=== PATIENT | female | born 1965 | race Caucasian/White ===

== ENCOUNTER 2022-01-17 08:37 | Outpatient (CLI) | payer OTHER, SELFPAY ==
--- NOTE | 2022-01-17 11:00 | NEURO_ITS ---
Impression: # Complains of numbness of hands. # Right ulnar neuropathy across the elbow. # No Carpal Tunnel Syndrome. # Normal needle/EMG exam. Nerve Conduction Studies Anti Sensory Summary Table Stim Site NR Peak (ms) P-T Amp (?V) Site1 Site2 Delta-P (ms) Dist (cm) Yoav (m/s) Left Median Anti Sensory (2-3nd Digit) Wrist 3.8 33.5 Wrist 2-3nd Digit 3.8 14.0 37 Wrist 3.8 18.8 Wrist 2-3nd Digit 3.8 14.0 37 Right Median Anti Sensory (2-3nd Digit) Wrist 3.0 68.9 Wrist 2-3nd Digit 3.0 14.0 47 Wrist 2.9 81.1 Wrist 2-3nd Digit 3.0 14.0 47 Left Radial Anti Sensory (Base 1st Digit) Wrist 2.5 21.6 Wrist Base 1st Digit 2.5 0.0 Right Radial Anti Sensory (Base 1st Digit) Wrist 2.5 17.1 Wrist Base 1st Digit 2.5 0.0 Left Ulnar Anti Sensory (5th Digit) Wrist 2.7 64.9 Wrist 5th Digit 2.7 14.0 52 Right Ulnar Anti Sensory (5th Digit) Wrist 2.6 58.0 Wrist 5th Digit 2.6 14.0 54 Motor Summary Table Stim Site NR Onset (ms) O-P Amp (mV) Site1 Site2 Delta-0 (ms) Dist (cm) Yoav (m/s) Left Median Motor (Abd Poll Brev) Wrist 3.6 5.0 Elbow Wrist 4.8 27.0 56 Elbow 8.4 3.9 Right Median Motor (Abd Poll Brev) Wrist 3.0 5.7 Elbow Wrist 4.7 26.0 55 Elbow 7.7 5.5 Left Ulnar Motor (Abd Dig Minimi) Wrist 2.8 6.4 A Elbow Wrist 4.9 27.0 55 A Elbow 7.7 5.3 B Elbow Wrist 4.2 25.0 60 B Elbow 7.0 5.1 Right Ulnar Motor (Abd Dig Minimi) Wrist 2.9 7.5 A Elbow Wrist 5.7 28.0 49 A Elbow 8.6 4.8 B Elbow Wrist 3.4 20.0 59 B Elbow 6.3 4.4 F Wave Studies NR F-Lat (ms) L-R F-Lat (ms) Left Median (Mrkrs) (Abd Poll Brev) 26.85 0.83 Right Median (Mrkrs) (Abd Poll Brev) 26.02 0.83 Left Ulnar (Mrkrs) (Abd Dig Min) 27.27 0.39 Right Ulnar (Mrkrs) (Abd Dig Min) 26.88 0.39 EMG Side Muscle Nerve Root Ins Act Fibs Amp Dur Recrt Comment Right 1stDorInt Ulnar C8-T1 Nml Nml Nml Nml Nml Right Ext Indicis Radial (Post Int) C7-8 Nml Nml Nml Nml Nml Right Ext Digitorum Radial (Post Int) C7-8 Nml Nml Nml Nml Nml Right BrachioRad Radial C5-6 Nml Nml Nml Nml Nml Right PronatorTeres Median C6-7 Nml Nml Nml Nml Nml Right Abd Poll Brev Median C8-T1 Nml Nml Nml Nml Nml Left 1stDorInt Ulnar C8-T1 Nml Nml Nml Nml Nml Left Ext Indicis Radial (Post Int) C7-8 Nml Nml Nml Nml Nml Left Ext Digitorum Radial (Post Int) C7-8 Nml Nml Nml Nml Nml Left BrachioRad Radial C5-6 Nml Nml Nml Nml Nml Left PronatorTeres Median C6-7 Nml Nml Nml Nml Nml Left Abd Poll Brev Median C8-T1 Nml Nml Nml Nml Nml Right ABD Dig Min Ulnar C8-T1 Nml Nml Nml Nml Nml Left ABD Dig Min Ulnar C8-T1 Nml Nml Nml Nml Nml MTDD
== END 2022-01-17 08:38 | disposition home or self-care (01) ==
PROVIDERS: PCP Internal Medicine Infectious Disease; Visit Provider Registered Nurse
DX: R20.2 Paresthesia of skin (principal); M54.2 Cervicalgia; G56.21 Lesion of ulnar nerve, right upper limb
CPT/HCPCS: 95886; 95911

== ENCOUNTER 2022-02-12 12:49 | Outpatient (CLI) | payer OTHER, SELFPAY ==
--- NOTE | 2022-02-12 13:07 | ECG_ITS ---
Measurements Intervals [place] Rate: 82 P: 42 KS: 136 QRS: 37 QRSD: 80 T: 62 QT: 381 QTc: 446 Interpretive Statements SINUS RHYTHM NONSPECIFIC T-WAVE ABNORMALITY ABNORMAL ECG NO PREVIOUS ECG AVAILABLE FOR COMPARISON Electronically Signed On 02-12-2022 14:13:38 CDT by Damien Valadez M.D.
== END 2022-02-12 12:50 | disposition home or self-care (01) ==
LOC: ANHCARD 12:52
PROVIDERS: PCP Internal Medicine Infectious Disease; Visit Provider Anesthesiology
DX: Z72.0 Tobacco use (principal); Z01.818 Encounter for other preprocedural examination; R94.31 Abnormal electrocardiogram [ECG] [EKG]
CPT/HCPCS: 93005

== ENCOUNTER 2022-02-13 01:26 | Day surgery (SDC) | payer OTHER, SELFPAY ==
--- NOTE | 2022-02-08 12:51 | P.HP_ITS ---
H&P: HPI History of Present Illness Date/Time: 02/08/22 12:51 Chief Complaint: the patient is a 56-year-old female who presents with left knee pain. This is chronic ongoing in nature. Patient has aching pain medially and anteriorly worse with activities and relieved by rest. She has problems with squatting kneeling going up down stairs reports mechanical symptoms occasional swelling. Despite cortisone therapy and anti-inflammatories symptoms continue. An MRI scan was performed that shows a popliteal fossa cyst and intercondylar cyst in between the femoral condyles mild sprain of the anterior cruciate ligament is noted grade 2 changes with chondromalacia patella. There is a horizontal tear of the posterior horn the medial meniscus not extending to the articular surface there is some edema seen in the medial femoral condyle and tibial plateau de generative changes are noted along the medial compartment there is a grade 1 sprain of the medial collateral ligament and minimal sprain of the quadriceps tendon insertion. at this point the patient is where the above findings she knows she has pre-existing osteoarthritis may negative for leaf of her knee pain from knee arthroscopy however she would like to proceed. Review of Systems Review of Systems: Ten point review of systems otherwise negative Meds Home Medications and Allergies Allergies Allergy/AdvReac Type Severity Reaction Status Date / Time ibuprofen Allergy Mild Verified 03/29/09 11:25 Exam Narrative: on exam the patient is noted be a well-developed well-nourished female no acute distress alert oriented x3. Normal mood and affect. The patient is noted to be 5 ft tall 160 lb. BMI is 31.2. Hearing and vision are intact. Respiratory is good no distress. Pulse regular rhythm. Abdomen benign. Extremities showed the patient's left knee to be painful with manipulation range of motion she has tenderness on the medial joint line with positive Christina exam negative Angi knee joint is otherwise stable strength is 5 5 there is subpatellar crepitation mild effusion swelling hips move well with negative Stinchfield negative Adriana neurovascularly she is intact skin is intact full range of motion is noted in left knee with pain with extremes of motion skin is intact without rashes or lesions. Central nervous system within normal limits. MRI scan is as above. Assessment and Plan Assessment and plan (1) Tear of medial meniscus of left knee: Code(s): S83.242A - Other tear of medial meniscus, current injury, left knee, initial encounter Status: Acute Plan by MRI and exam the patient is noted to have a medial meniscal tear of the left knee with the above associated findings. The patient has discussed risks benefits limitations and alternatives to surgery in great detail with Dr. Robb she is now ready to proceed with left knee arthroscopy partial medial meniscectomy proceed as indicated. The patient is scheduled to undergo surgery 02/13/2022 at [facility] Dr. Robb. The patient voiced understanding agrees with the above plan.
[2022-02-11 16:55] VITALS: BMI 32.3
--- NOTE | 2022-02-11 17:15 | PC.NURSE ---
Report to the Outpatient Waiting Room, entrance under the green pavilion located off [facility], at time 0730 on date 02/13/22. Planned Procedure Time: 0930. Time changes happen often and if your time is changed the preop area will call you the afternoon before. - You and your visitor will be asked to self-screen and do not enter if you have any COVID symptoms. - We encourage only one visitor and NO visitors under age 16 are allowed at this time. Your visitor will receive communication by the phone number that is given day of service. - The patient visitor is requested to social distance or may leave the building when not with patient due to restrictions. - A mask is required within the hospital. Patients may have clear liquids (water, carbonated beverages, clear teas, apple juice) until 3 hours prior to surgery with a maximum of 20 ounces 0630. - No food from midnight until time of surgery - Infants may have breast milk until 4 hours before surgery, formula 6 hours prior to surgery. - Children will be allowed to drink immediately following surgery. If applicable, please bring a bottle or sippy cup to assist with drinking. Juice, water, soda, and popsicles are readily available. For infants on formula, please bring formula the day of surgery. Pacifiers are allowed. Take the following medications with a SIP of water the morning of surgery: Valiuam, Cymbalta, Spiriva, Albuterol Inhaler, Incruse Ellipta, Flonase Medications to discontinue per physician loratadine, montelukast, omeprazole Date to take last dose 02/10/22 Please no make-up, nail somali, hairspray, perfume, deodorant, or body powder the day of surgery. No jewelry (including any body piercings) or valuables the day of surgery, leave them at home. Please take a shower or bath the night before, or the morning of, surgery with an antibacterial soap. Wear comfortable, loose fitting clothing. Children are encouraged to wear pajamas. - Jewelry must be removed prior to entering the operating room. Rings and piercings that are not removed may be cut off. - The hospital will not accept responsibility for valuables. - Please leave all valuables, including medications, at home the day of surgery. If you are going home after surgery, a licensed pile driver operator helper must drive you home. - NO public transportation without another adult. - We recommend that an adult stay with you for 24 hours following discharge. - We also recommend that you do not drive, make important decision, drink alcoholic beverages, or take any drugs that were not prescribed by your health care provider for at least 24 hours after your discharge time. For Pediatric surgeries, we recommend two adults accompany the child home. Follow any additional instructions given to you from your surgeon. If you or anyone in your household have experienced Covid symptoms in the past week, please notify your surgeon or the nurse liaison at the phone number below for possible testing. Telephone instructions given to Tara Vilchis and asked if any additional questions and then verbalized understanding. Patient advised to call surgeon office or pre surgery nurse liaison [phone] if any additional questions.
[2022-02-13] VITALS (9 sets, daily range): BP systolic 101–135; BP diastolic 56–82; PULSE 59–79; RESP 10–15; TEMP 36.2–36.6; O2SAT 97–100; BMI 32.1
--- NOTE | 2022-02-13 07:07 | WPDHPUPDATE1 ---
History and Physical Update Update Date/Time: 02/13/22 07:07 History and Physical has been reviewed, including an updated exam of the patient. There are NO changes in the patient's condition. Risks, benefits, and alternatives have been discussed and questions answered. Patient agrees to proceed with procedure.
--- NOTE | 2022-02-13 07:58 | WPDANESEPPF ---
Anes - Initial Pre Proc Eval Procedure: Operation Date: 02/13/22 09:30 Proposed Procedures p Left Knee Arthroscopy, Partial Medial Meniscectomy, Proceed As Indicated - Stephen Robb MD Date/Time: 02/13/22 07:58 Surgeon: Stephen Robb MD Pre Op Diagnosis: medial meniscal tear left knee Patient Data Age: 56 Gender: F Height: 1.52 m Weight: 74.55 kg Last Vital Signs Temp 36.2 C L 02/13/22 07:40 Pulse 79 02/13/22 07:40 Resp 14 02/13/22 07:40 BP 121/69 02/13/22 07:40 Pulse Ox 98 02/13/22 07:40 O2 Del Method Room Air 02/13/22 07:40 Allergies Allergy/AdvReac Type Severity Reaction Status Date / Time ibuprofen Allergy Mild Hives Verified 02/11/22 16:47 Home Medications Medication Instructions Recorded Confirmed Type albuterol sulfate 2.5 mg/3 mL 2.5 mg inhalation TID PRN Cough 02/11/22 02/11/22 History (0.083 %) solution for nebulization albuterol sulfate 90 mcg/actuation 2 inh inhalation Q4-6H PRN 02/11/22 02/13/22 History aerosol inhaler Shortness Of Breath diazepam 5 mg tablet (Valium) 5 mg PO BID PRN Anxiety 02/11/22 02/11/22 History duloxetine 60 mg capsule,delayed 60 mg PO DAILY 02/11/22 02/13/22 History release (Cymbalta) fluticasone propionate 50 1 spray intranasal DAILY 02/11/22 02/11/22 History mcg/actuation nasal spray,suspension loratadine 10 mg tablet 10 mg PO DAILY 02/11/22 02/11/22 History montelukast 10 mg tablet 10 mg PO DAILY 02/11/22 02/11/22 History omeprazole 20 mg capsule,delayed 20 mg PO DAILY 02/11/22 02/11/22 History release tiotropium bromide 18 mcg capsule 1 cap inhalation DAILY 02/11/22 02/11/22 History with inhalation device (Spiriva with HandiHaler) umeclidinium 62.5 mcg/actuation 1 inh inhalation DAILY 02/11/22 02/11/22 History blister powder for inhalation (Incruse Ellipta) Patient hx anesthesia problems: post op nausea/vomiting Family hx anesthesia problems: none Results Review: All pre-operative results and documents have been reviewed as part of the pre-operative evaluation. [facility] Past Medical History Medical History (Updated 02/13/22 @ 08:00 by Santana Tam DO) Anxiety Asthma Bipolar disorder COPD (chronic obstructive pulmonary disease) GERD (gastroesophageal reflux disease) Hiatal hernia PONV (postoperative nausea and vomiting) TIA (transient ischemic attack) Surgical History Surgical History (Updated 02/13/22 @ 08:00 by Santana Tam DO) History of appendectomy Social History Social History Smoking packs per day: 1.5 Smoking cigarettes per day: 30.0 Years smoked: 40 Smoking pack-years: 60.00 Smoking status: Current every day smoker Tobacco type: cigarettes Living arrangements: with family Spiritual care concerns: No Anes - Eval Final PreProcedure Day of Procedure 02/13/22 07:58 Patient weight: obese Heart: regular rate and rhythm Lungs: clear to auscultation Airway: Mallampati scale class II Neurological: alert and oriented Last oral intake: >/= 8 hours ASA classification: III Emergent: no Anesthetic plan: proceed Anesthesia type and monitoring: general LMA and standard monitoring Results Review: All pre-operative results and documents have been reviewed as part of the pre-operative evaluation. Informed Consent: The patient's anesthetic plan and its attendant risks and benefits were discussed with the patient/family/POA. Questions were solicited and answers provided to the satisfaction of the patient/family/POA.
[2022-02-13] MEDS: LACTATED RINGERS 1,000 ML 30 ML IV CONT (08:10)
[2022-02-13] MEDS: ACETAMINOPHEN 500 MG TABLET 1000 MG PO (08:15)
--- NOTE | 2022-02-13 08:20 | SUR.PREOP ---
0820- Patient with known allergy to Ibuprofen and refusing IVP Toradol at this time.
[2022-02-13] MEDS: ceFAZolin 2 GM/D5W 50 ML 2 GM/50 ML BAG IVPB (09:29)
--- NOTE | 2022-02-13 10:16 | W.PM.PROC2 ---
Procedure Note - Detailed Date of Procedure 02/13/22 Pre-op Diagnosis medial meniscal tear left knee Post-op Diagnosis Same Procedure Performed Arthroscopy, partial menisectomy Surgeon Stephen Robb MD Anesthesia General Description of Procedure Patient brought to the operating room and anesthetic was administered. The knee was steriley prepped and drapped in the usual manner. Standard portals were used. Superior medial portal was used for the outflow cannula, inferior lateral portal was used for the scope, inferior medial portal was used for the instruments. Arthroscopy was performed, the patellar femoral joint degenerative changes. The medial compartment showed a complex tear. The lateral compartment showed fraying. The ACL was intact. Using baskets and weston the meniscal tear was trimmed back to a stable base so the nothing further could be pulled into the joint. Any loose or delaminated fragments were gently trimmed to a stable base. At this point the instruments were withdrawn, sutures placed and patient left the operating room in satisfactory condition. Moderate degenerative changes noted near the meniscal tear. Estimated Blood Loss 20 Drains No Packing No Pathology None sent Complications No immediate complications Condition Stable Disposition PACU
[2022-02-13] MEDS: fentaNYL CITRATE INJ (*CRX) 100 MCG/2 ML VIAL 25 MCG IV PUSH ×4 (10:56→11:29)
[2022-02-13] MEDS: oxyCODONE HCL (*CRX) 5 MG TAB IR PO (11:58)
== END 2022-02-13 12:35 | disposition home or self-care (01) ==
PROVIDERS: PCP Registered Nurse; Visit Provider Orthopaedic Surgery
PROC: (CPT 29870; principal; 2022-02-13 09:30)
DX: M23.332 Other meniscus derangements, other medial meniscus, left knee (principal); J44.9 Chronic obstructive pulmonary disease, unspecified; F41.9 Anxiety disorder, unspecified; F31.9 Bipolar disorder, unspecified; K21.9 Gastro-esophageal reflux disease without esophagitis; Z86.73 Personal history of transient ischemic attack (TIA), and cerebral infarction without residual deficits; F17.210 Nicotine dependence, cigarettes, uncomplicated; E66.9 Obesity, unspecified; Z68.32 Body mass index [BMI] 32.0-32.9, adult; Z79.51 Long term (current) use of inhaled steroids
CPT/HCPCS: 29881; A9270; J0690; J1100; J2250; J2405; J2704; J3010; J7120

== ENCOUNTER 2022-11-27 09:14 | Outpatient (CLI) | payer OTHER, SELFPAY ==
--- NOTE | 2022-11-27 11:00 | NEURO_ITS ---
Impression: # Complains of numbness of hands. # Evolving left Carpal Tunnel Syndrome. # Mild right ulnar neuropathy across the elbow. # Normal needle/EMG. Nerve Conduction Studies Anti Sensory Summary Table Stim Site NR Peak (ms) P-T Amp (?V) Site1 Site2 Delta-P (ms) Dist (cm) Yoav (m/s) Left Median Anti Sensory (2-3nd Digit) Wrist 3.9 38.7 Wrist 2-3nd Digit 3.9 14.0 36 Wrist 4.0 46.8 Wrist 2-3nd Digit 3.9 14.0 36 Right Median Anti Sensory (2-3nd Digit) Wrist 3.2 59.9 Wrist 2-3nd Digit 3.2 14.0 44 Wrist 3.0 42.6 Wrist 2-3nd Digit 3.2 14.0 44 Left Radial Anti Sensory (Base 1st Digit) Wrist 2.5 18.8 Wrist Base 1st Digit 2.5 0.0 Right Radial Anti Sensory (Base 1st Digit) Wrist 2.4 26.4 Wrist Base 1st Digit 2.4 0.0 Left Ulnar Anti Sensory (5th Digit) Wrist 2.7 21.0 Wrist 5th Digit 2.7 14.0 52 Right Ulnar Anti Sensory (5th Digit) Wrist 2.8 21.5 Wrist 5th Digit 2.8 14.0 50 Motor Summary Table Stim Site NR Onset (ms) O-P Amp (mV) Site1 Site2 Delta-0 (ms) Dist (cm) Yoav (m/s) Left Median Motor (Abd Poll Brev) Wrist 4.0 5.2 Elbow Wrist 4.6 26.0 57 Elbow 8.6 3.7 Right Median Motor (Abd Poll Brev) Wrist 3.2 5.4 Elbow Wrist 4.8 27.0 56 Elbow 8.0 5.2 Left Ulnar Motor (Abd Dig Minimi) Wrist 2.9 5.0 A Elbow Wrist 4.7 27.0 57 A Elbow 7.6 4.6 Right Ulnar Motor (Abd Dig Minimi) Wrist 2.8 7.1 A Elbow Wrist 5.6 28.0 50 A Elbow 8.4 4.4 B Elbow Wrist 3.7 20.0 54 B Elbow 6.5 3.8 F Wave Studies EMG Side Muscle Nerve Root Ins Act Fibs Amp Dur Recrt Comment Right 1stDorInt Ulnar C8-T1 Nml Nml Nml Nml Nml Right Ext Indicis Radial (Post Int) C7-8 Nml Nml Nml Nml Nml Right Ext Digitorum Radial (Post Int) C7-8 Nml Nml Nml Nml Nml Right BrachioRad Radial C5-6 Nml Nml Nml Nml Nml Right PronatorTeres Median C6-7 Nml Nml Nml Nml Nml Right Abd Poll Brev Median C8-T1 Nml Nml Nml Nml Nml Left 1stDorInt Ulnar C8-T1 Nml Nml Nml Nml Nml Left Ext Indicis Radial (Post Int) C7-8 Nml Nml Nml Nml Nml Left Ext Digitorum Radial (Post Int) C7-8 Nml Nml Nml Nml Nml Left BrachioRad Radial C5-6 Nml Nml Nml Nml Nml Left PronatorTeres Median C6-7 Nml Nml Nml Nml Nml Left Abd Poll Brev Median C8-T1 Nml Nml Nml Nml Nml MTDD
== END 2022-11-27 09:15 | disposition home or self-care (01) ==
LOC: ANHNEURO 09:16
PROVIDERS: PCP Registered Nurse; Visit Provider Registered Nurse
DX: R20.2 Paresthesia of skin (principal); G56.02 Carpal tunnel syndrome, left upper limb; G56.21 Lesion of ulnar nerve, right upper limb
CPT/HCPCS: 95886; 95911